=== PATIENT | male | born 1960 | race Caucasian/White ===

== ENCOUNTER → 2024-03-18 12:19 | Outpatient (REF) | payer OTHER, SELFPAY ==
[2024-03-18 13:12] LABS: % Basophils 0.5 % (0-2); % Eosinophils 1.5 % (0-6); % Immature Granulocytes 0.2 % (0-0.5); % Lymphocytes 28.8 % (20.5-51.1); % Monocytes 7.1 % (1.7-9.3); % Neutrophils 61.9 % (42.2-75.2); Absolute Eosinophils 0.1 10^3/uL (0-0.7); Absolute Lymphocytes 1.6 10^3/uL (1.2-3.4); Absolute Monocytes 0.4 10^3/uL (0.1-0.6); Absolute Neutrophils 3.4 10^3/uL (1.4-6.5); Hematocrit 41.5 % (39.0-52.0); Hemoglobin 14.2 g/dL (13.0-18.0); Mean Corp Hgb Conc. 34.2 g/dL (33.0-37.0); Mean Corpuscular Volume 81.7 fL (80.0-94.0); Mean Platelet Volume 10.8 fL (7.4-10.4); Nucleated Red Blood Cells % 0 % (-); Platelet Count 139 10^3/uL (130-400); Red Blood Cell Count 5.08 10^6/uL (4.70-6.10); Red Cell Dist. Width 14.2 % (11.5-14.5); White Blood Cell Count 5.5 10^3/uL (4.8-10.8)
[2024-03-18 13:39] LABS: ALT (SGPT) 31 U/L (0-50); AST (SGOT) 51 U/L (17-59); Albumin 4.6 g/dl (3.5-5.0); Alkaline Phosphatase 131 U/L (38-126); Blood Urea Nitrogen 16 mg/dl (9-20); Calcium 9.8 mg/dl (8.4-10.2); Carbon Dioxide 25 mmol/L (22-30); Chloride 101 mmol/L (98-107); Glucose 121 mg/dl (70-99); HDL Cholesterol 44 mg/dl; LDL Cholesterol, Calculated 134 mg/dl; Potassium 4.7 mmol/L (3.5-5.1); Sodium 138 mmol/L (135-145); Total Bilirubin 1.1 mg/dl (0.2-1.3); Total Cholesterol 234 mg/dl (50-199); Total Protein 8.1 g/dl (6.3-8.2); Triglyceride 284 mg/dl (10-149); Very Low Density Lipoprotein 56 mg/dl (0-30); eGFR > 60.00
[2024-03-18 14:09] LABS: PSA, Total - Screen 4.79 ng/ml (0.0-4.0); TSH Reflex To Free T4 4.01 uIU/ml (0.47-4.68)
== END ==
LOC: REG 12:19
PROVIDERS: ATTENDING PHYSICIAN Physician Assistant
DX: R03.0 Elevated blood-pressure reading, without diagnosis of hypertension (principal); Z00.00 Encounter for general adult medical examination without abnormal findings; Z12.5 Encounter for screening for malignant neoplasm of prostate
CPT/HCPCS: 36415; 80053; 80061; 84443; 85025; G0103

== ENCOUNTER 2025-08-13 12:52 | Outpatient (RCR) | payer OTHER, SELFPAY | END 2025-08-13 23:59 | disposition home or self-care (01) | LOC: RPT 12:52 | PROVIDERS: ATTENDING PHYSICIAN Orthopaedic Surgery; FAMILY PHYSICIAN Family Medicine | DX: Z47.1 Aftercare following joint replacement surgery (principal); Z73.6 Limitation of activities due to disability; R26.2 Difficulty in walking, not elsewhere classified; M62.81 Muscle weakness (generalized); M25.662 Stiffness of left knee, not elsewhere classified; M25.661 Stiffness of right knee, not elsewhere classified; M25.562 Pain in left knee; M25.561 Pain in right knee; R26.89 Other abnormalities of gait and mobility; Z96.653 Presence of artificial knee joint, bilateral | CPT/HCPCS: 97110; 97112; 97140; 97162; 97530 ==

== ENCOUNTER 2025-09-11 07:09 | Outpatient (RCR) | payer OTHER, SELFPAY | END 2025-09-11 23:59 | disposition home or self-care (01) | LOC: RPT 07:09 | PROVIDERS: ATTENDING PHYSICIAN Orthopaedic Surgery; FAMILY PHYSICIAN Family Medicine | DX: Z47.1 Aftercare following joint replacement surgery (principal); Z73.6 Limitation of activities due to disability; R26.2 Difficulty in walking, not elsewhere classified; M62.81 Muscle weakness (generalized); M25.662 Stiffness of left knee, not elsewhere classified; M25.661 Stiffness of right knee, not elsewhere classified; M25.562 Pain in left knee; M25.561 Pain in right knee; R26.89 Other abnormalities of gait and mobility; Z96.653 Presence of artificial knee joint, bilateral | CPT/HCPCS: 97110; 97112; 97530 ==

== ENCOUNTER 2025-09-29 11:14 | Outpatient (RCR) | payer OTHER, SELFPAY | END 2025-09-30 06:27 | disposition home or self-care (01) | LOC: RPT 11:14 | PROVIDERS: ATTENDING PHYSICIAN Orthopaedic Surgery; FAMILY PHYSICIAN Family Medicine | DX: Z47.1 Aftercare following joint replacement surgery (principal); Z73.6 Limitation of activities due to disability; R26.2 Difficulty in walking, not elsewhere classified; M62.81 Muscle weakness (generalized); M25.662 Stiffness of left knee, not elsewhere classified; M25.661 Stiffness of right knee, not elsewhere classified; M25.562 Pain in left knee; M25.561 Pain in right knee; R26.89 Other abnormalities of gait and mobility; Z96.653 Presence of artificial knee joint, bilateral | CPT/HCPCS: 97110; 97112; 97530 ==